=== PATIENT | female | born 1995 | race Caucasian/White ===

== ENCOUNTER 2018-01-31 12:45 | Emergency (ER) | payer BC, SELFPAY ==
--- NOTE | 2018-01-31 13:59 | ER ---
Nurse's Notes [facility] Name: Sherman Hall Age: 22 yrs Sex: Female : 1995 Arrival Date: 01/31/2018 Time: 12:46 Bed 12 Private MD: Diagnosis: Acute upper respiratory infection, unspecified Presentation: 01/31 12:56 Presenting complaint: Patient states: Flu like symptoms for 2 days. Transition of care: aj patient was not received from another setting of care. Onset of symptoms was January 29, 2018. Care prior to arrival: None. 12:56 Method Of Arrival: Ambulatory 12:56 Acuity: LINNEA 4 Triage Assessment: 12:57 General: Appears in no apparent distress. comfortable, Behavior is calm, cooperative, aj appropriate for age. Pain: Denies pain. EENT: Reports nasal congestion nasal discharge. Neuro: Level of Consciousness is awake, alert, obeys commands, Oriented to person, place, time, situation. Respiratory: Reports cough that is Airway is patent Respiratory effort is even, unlabored, Respiratory pattern is regular, symmetrical. Derm: Skin is intact, is healthy with good turgor, Skin is pink, warm \T\ dry. normal. 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 - Social history:: Smoking status: Patient/guardian denies using tobacco. Screenin:52 Abuse screen: Denies threats or abuse. Denies injuries from another. Nutritional ss screening: No deficits noted. Tuberculosis screening: Never had TB. Fall Risk None identified. Assessment: 13:52 General: Appears uncomfortable, ill, Behavior is calm, cooperative, Reports chills for ss 1-2 days, fever for 1-2 days, feeling ill for 1-2 days, fatigue for 1-2 days. Pain: Denies pain. Neuro: Level of Consciousness is awake, alert, obeys commands, Oriented to person, place, time, situation. Cardiovascular: Capillary refill < 3 seconds is brisk in bilateral fingers. Respiratory: Airway is patent Respiratory effort is even, unlabored, Respiratory pattern is regular, symmetrical. GI: Patient currently denies abdominal pain, diarrhea, nausea, vomiting. : Denies burning with urination, urinary frequency. EENT: Nares are clear Oral mucosa is moist. Derm: Skin is intact, is healthy with good turgor, Skin is dry, Skin is pink, warm \T\ dry. normal. Musculoskeletal: Circulation, motion, and sensation intact. Capillary refill < 3 seconds, is brisk, in bilateral fingers. Range of motion: intact in all extremities, Swelling absent. Vital Signs: 12:57 BP 116 / 76; Pulse 91; Resp 17; Temp 99.3; Pulse Ox 99% on R/A; Weight 88 kg; Height 5 aj ft. 6 in. (167.64 cm); Pain 0/10; 12:57 Body Mass Index 31.31 (88.00 kg, 167.64 cm) aj ED Course: 12:46 Patient arrived in ED. as 12:57 Triage completed. aj 12:57 Arm band placed on left wrist. Patient placed in waiting room, Patient notified of wait aj time. Labs ordered per protocol. 13:49 Elicia Traore FNP-C is PHCP. kb 13:49 Poncho Lee MD is Attending Physician. kb 13:52 Patient has correct armband on for positive identification. Bed in low position. Call ss light in reach. 14:10 No provider procedures requiring assistance completed. Patient did not have IV access ss during this emergency room visit. Administered Medications: No medications were administered Outcome: 13:59 Discharge ordered by MD. kb 14:10 Discharged to home ambulatory. ss 14:10 Condition: good 14:10 Discharge instructions given to patient, Instructed on discharge instructions, follow up and referral plans. medication usage, Demonstrated understanding of instructions, follow-up care. 14:11 Patient left the ED. ss Signatures: Elicia Traore FNP-C FNP-Yasmeen Piedra RN RN aj Martinez, Amelia as Smirch, Shelby, RN RN
--- NOTE | 2018-01-31 13:59 | EDPHYS ---
Physician Documentation [facility] Name: Sherman Hall Age: 22 yrs Sex: Female : 1995 Arrival Date: 01/31/2018 Time: 12:46 Bed 12 Private MD: ED Physician Poncho Lee HPI: 01/31 13:58 This 22 yrs old Female presents to ER via Ambulatory with complaints of kb Fever, Cough. 13:58 The patient or guardian reports cough, that is intermittent, described as mild, with no kb sputum, flu symptoms, low-grade fever, myalgias. Onset: The symptoms/episode began/occurred 3 day(s) ago. Severity of symptoms: At their worst the symptoms were mild, moderate, in the emergency department the symptoms are unchanged. Modifying factors: The symptoms are alleviated by nothing, the symptoms are aggravated by nothing. Associated signs and symptoms: Pertinent positives: fever, rhinorrhea, Pertinent negatives: chest pain, diarrhea, ear ache, nausea, sore throat, vomiting. The patient has not experienced similar symptoms in the past. The patient has not recently seen a physician. 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 - Social history:: Smoking status: Patient/guardian denies using tobacco. ROS: 13:57 Cardiovascular: Negative for chest pain, palpitations, and edema, Abdomen/GI: Negative kb for abdominal pain, nausea, vomiting, diarrhea, and constipation, Back: Negative for injury and pain, MS/Extremity: Negative for injury and deformity, Skin: Negative for injury, rash, and discoloration, Neuro: Negative for headache, weakness, numbness, tingling, and seizure. 13:57 Constitutional: Positive for body aches, fever, Negative for chills, fatigue, malaise, poor PO intake, weight loss. 13:57 ENT: Positive for rhinorrhea, sinus congestion. 13:57 Respiratory: Positive for cough, Negative for dyspnea on exertion, hemoptysis, orthopnea, pleurisy, shortness of breath, sputum production, wheezing. Exam: 13:57 Constitutional: This is a well developed, well nourished patient who is awake, alert, kb and in no acute distress. Head/Face: Normocephalic, atraumatic. ENT: Nares patent. No nasal discharge, no septal abnormalities noted. Tympanic membranes are normal and external auditory canals are clear. Oropharynx with no redness, swelling, or masses, exudates, or evidence of obstruction, uvula midline. Mucous membranes moist. Neck: Trachea midline, no thyromegaly or masses palpated, and no cervical lymphadenopathy. Supple, full range of motion without nuchal rigidity, or vertebral point tenderness. No Meningismus. Chest/axilla: Normal chest wall appearance and motion. Nontender with no deformity. No lesions are appreciated. Cardiovascular: Regular rate and rhythm with a normal S1 and S2. No gallops, murmurs, or rubs. Normal PMI, no JVD. No pulse deficits. Respiratory: Lungs have equal breath sounds bilaterally, clear to auscultation and percussion. No rales, rhonchi or wheezes noted. No increased work of breathing, no retractions or nasal flaring. Abdomen/GI: Soft, non-tender, with normal bowel sounds. No distension or tympany. No guarding or rebound. No evidence of tenderness throughout. Back: No spinal tenderness. No costovertebral tenderness. Full range of motion. Skin: Warm, dry with normal turgor. Normal color with no rashes, no lesions, and no evidence of cellulitis. MS/ Extremity: Pulses equal, no cyanosis. Neurovascular intact. Full, normal range of motion. Neuro: Awake and alert, GCS 15, oriented to person, place, time, and situation. Cranial nerves II-XII grossly intact. Motor strength 5/5 in all extremities. Sensory grossly intact. Cerebellar exam normal. Normal gait. Vital Signs: 12:57 BP 116 / 76; Pulse 91; Resp 17; Temp 99.3; Pulse Ox 99% on R/A; Weight 88 kg; Height 5 aj ft. 6 in. (167.64 cm); Pain 0/10; 12:57 Body Mass Index 31.31 (88.00 kg, 167.64 cm) aj MDM: 13:49 Patient medically screened. kb 13:56 Data reviewed: vital signs, nurses notes. Data interpreted: Pulse oximetry: on room air kb is 99 %. Interpretation: normal. 13:58 Counseling: I had a detailed discussion with the patient and/or guardian regarding: the kb historical points, exam findings, and any diagnostic results supporting the discharge/admit diagnosis, lab results, the need for outpatient follow up, a family practitioner, to return to the emergency department if symptoms worsen or persist or if there are any questions or concerns that arise at home. 01/31 12:56 Order name: Flu; Complete Time: 13:48 01/31 12:56 Order name: Strep; Complete Time: 13:48 01/31 13:32 Order name: Throat Culture EDMS Administered Medications: No medications were administered Disposition: 14:46 Co-signature as Attending Physician, Poncho Lee MD. Disposition: 01/31/18 13:59 Discharged to Home. Impression: Acute upper respiratory infection, unspecified. - Condition is Stable. - Discharge Instructions: Upper Respiratory Infection, Adult, [id number]. - Medication Reconciliation Form, Thank You Letter, Antibiotic Education, Prescription Opioid Use form. - Follow up: Private Physician; When: 2 - 3 days; Reason: Recheck today's complaints, Continuance of care, Re-evaluation by your physician. Follow up: Emergency Department; When: As needed; Reason: Worsening of condition. Signatures: Dispatcher [employer] EDMS Elicia Traore, CASPER CAICEDO-Yasmeen Piedra, RN Jina Joyce RN RN ss Starr, Gregory, MD MD
[2018-01-31 14:20] VITALS: BP 116/76; TEMP 99.3; O2SAT 99
== END 2018-01-31 14:11 | disposition home or self-care (01) ==
LOC: ER 12:45
DX: J06.9 Acute upper respiratory infection, unspecified (principal)
CPT/HCPCS: 87070; 87081; 87804; 99283

== ENCOUNTER 2019-10-13 17:28 | Emergency (ER) | payer SELFPAY ==
--- OUTSIDE RECORDS SUMMARY | 2019-10-13 17:31 | XMS REPORT | Summary of Care ---
:1995 Author Organization [facility] - Health Address [address] [place] [address] Care Team Providers Name Role Phone Clark Mclain Malgorzata CAICEDO Primary Care Provider Encounter Details Date Type Department Care Team Description 06/18/2019 Orders Only [facility] Doctor Unassigned, No 301 [facility] [place] [address] [address] [id number] Allergies No Known Allergiesdocumented as of this encounter (statuses as of 06/26/2019) Medications Medication Sig Dispensed Refills Start Date End Date Status PROAIR HFA 90 0 03/31/2016 Active mcg/actuation inhaler ibuprofen (MOTRIN) 800 Take 1 tablet by 60 tablet 0 07/22/2016 Active mg tablet mouth every 8 (eight) hours as needed for Pain (scale 1-3). HYDROcodone-acetaminoph Take 1 tablet by 40 tablet 0 07/22/2016 Active en (NORCO) 10-325 mg mouth every 6 tablet (six) hours as needed for Pain (scale 1-3), Pain (scale 4-6) or Pain (scale 7-10). phentermine HCl Take by mouth. 0 Active (ADIPEX-P ORAL) documented as of this encounter (statuses as of 06/26/2019) Active Problems Problem Noted Date Well woman exam 12/31/2018 Encounter for contraceptive management, unspecified type 12/31/2018 Family planning, IUD (intrauterine device) check/reinsertion/removal 2018 Pre-conception counseling 12/31/2018 Screen for STD (sexually transmitted disease) 12/31/2018 Overweight 12/31/2018 BMI 28.0-28.9,adult 12/31/2018 History of herpes genitalis 06/08/2016 documented as of this encounter (statuses as of 06/26/2019) Resolved Problems Problem Noted Date Resolved Date Liveborn , of roberts , born in hospital by 07/21/201608/22 delivery Induction of Labor Requiring Cervical Ripening 07/20/2016 12/31/2018 Normal labor and delivery 07/20/2016 12/31/2018 URI (upper respiratory infection) 07/12/2016 12/31/2018 PUPPP (pruritic urticarial papules and plaques of ) 07/05/201612/31 Excessive weight gain during in third trimester 07/05/20162018 High risk due to smoking in third trimester 06/08/2016 12/31/2018 Uterine size-date discrepancy, antepartum, third trimester 06/08/20162018 documented as of this encounter (statuses as of 06/26/2019) Immunizations Name Administration Dates Next Due Tdap 05/23/2016 documented as of this encounter Social History Tobacco Use Types Packs/Day Years Used Date Former Smoker Quit: 10/19/2015 Smokeless Tobacco: Never Used Comments: Quit early in Alcohol Use Drinks/Week oz/Week Comments Yes 0 Standard drinks or equivalent 0.0 socially Sex Assigned at Date Recorded Not on file Job Start Date Occupation Industry Not on file Not on file Not on file Travel History Travel Start Travel End No recent travel history available. documented as of this encounter Last Filed Vital Signs Not on filedocumented in this encounter Plan of Treatment Health Maintenance Due Date Last Done Comments HPV VACCINES (1 - Female 3-dose 2008 series) INFLUENZA VACCINE (Retired 07/06/2019 version) PAP SMEAR 12/31/2021 12/31/2018 DTaP,Tdap,and Td Vaccines (2 - Td) 05/23/2026 05/23/2016 PNEUMOCOCCAL 0-64 YEARS COMBINED Aged Out No longer eligible based on SERIES patient's age to complete this topic documented as of this encounter Procedures Procedure Name Priority Date/Time Associated Diagnosis Comments AUTHORIZATION FOR RELEASE Routine 06/18/2019 12:01 AM OF PHI CDT documented in this encounter Results Not on filedocumented in this encounter Insurance Payer Benefit Plan Subscriber ID Effective Phone Address Type / Group Dates [employer] [place] [id number] xxxxxxxxx 2018-Prese [phone] Medicaid WOMEN nt [address] [place] [address] documented as of this encounter
--- OUTSIDE RECORDS SUMMARY | 2019-10-13 17:31 | XMS REPORT ---
:1995 Author Organization [facility] Address [address] [place] [address] [address] [place] [address] Care Team Providers Name Role Phone Unavailable Unavailable Unavailable Payers Payer Name Policy Type Policy Number Effective Date Expiration Date Problems This patient has no known problems. Allergies, Adverse Reactions, Alerts Allergy Allergy Status Severity Reaction(s) Onset Inactive Treating Comments Name Type Date Date Clinician No Known DA Active U 2019-09 Allergies -16 00:00:0 0 Medications This patient has no known medications. Results Test Description Test Time Test Comments Text Results Atomic Results Result Comments PLACENTA 2019-09-25 RUN DATE: THIRD 18:45:00 09/26/19 [facility] PAGE 1 RUN TIME: 1248 TRIMESTER Specimen Inquiry RUN USER: INTERFACE PATIENT: ASHISH PULLIAM LOC: IAN U #: [id number] AGE/SX: ROOM: [facility] REREG DR: Justa Garcia MD : [birth year] BED: A DIS: 09/24/19 STATUS: DIS IN TLOC: SPEC #: [id number] RECD: 09/21/19 STATUS: SUSANA REQ # : [id number] MAGALI: 09/21/19- SUBM DR: Justa Garcia MD ENTERED: 09/23/19 SP TYPE: PLACIII OTHR DR: Crystal Crocker MD ORDERED: LEVEL V SURGICA CODES: [id number] - PLACENTA, NOS COPIES TO: Justa Garcia MD [address] [place] [address] [phone] Crystal Crocker MD [address] [place] [address] PROCEDURES: LEVEL V SURGICA (Incomplete) TISSUES: PLACENTA, NOS - PLACENTA CLINICAL HISTORY 24 year old, IUP @ 38 weeks, [id number], section, LGA, macrosomia (dominick) FINAL DIAGNOSIS Placenta, 38 weeks gestational age, section: - third trimester placenta, 730 gm (greater than 97th percentile) - meconium macrophages within membranes - small intervillous thrombi - paramarginally inserted trivascular umbilical cord and membranes free of inflammation CPT code(s): 46411 [facility]/dominick dt: 09/25/19 GROSS DESCRIPTION The specimen was received in a container, labeled with the patient's name, unit number and designated "placenta". The following attributes are observed: Cord insertion : 2 cm from margin Cord length: 42 cm Number of vessels: 3 CONTINUED ON NEXT PAGE RUN DATE: 09/26/19 [facility] PAGE 2 RUN TIME: 1248 Specimen Inquiry RUN USER: INTERFACE SPEC #: [id number] PATIENT: ASHISH PULLIAM #[id number] (Continued) -- GROSS DESCRIPTION (Continued) Cord color: Li Other cord findings: Slightly edematous; less than 12 twists per 10 cm surface findings: Steel blue, wrinkled, glistening with focal subchorionic fibrin deposition Vasculature: Displays unremarkable blood vasculature Membranes rupture site: Marginal Membrane color: Li Other membrane findings: Thickened The trimmed placental weight: 730 gm Disk measurement: 22 x 17 x 4.5 cm in greatest dimension Accessory lobes: None Maternal surface: Slightly fragmented with well-formed cotyledons Parenchyma: Red, beefy, and spongy with peripheral fibrosis and calcifications Parenchyma lesions: There is a 0.8 cm li-yellow to dark red, peripheral focus which grossly involves less than 5% of the placental parenchyma Cassettes: A1 through A4 jm/wpd 09/23/19 @ 1337 Signed Samira Lugo MD [id number] END OF REPORT CBC W/AUTO DIFF 2019-09-22 07:54:00 Test Item Value Reference Range Comments WHITE BLOOD CELL (test code=WBC) 12.4 K/mm3 6.6-12.1 RED BLOOD CELL (test code=RBC) 3.36 M/mm3 3.45-5.01 HEMOGLOBIN (test code=HGB) 7.7 g/dL 10.7-13.9 HEMATOCRIT (test code=HCT) 26.4 % 32.1-42.1 MEAN CELL VOLUME (test code=MCV) 79 fL 84.1-94.8 MEAN CELL HGB (test code=MCH) 22.9 pg 27-35 MEAN CELL HGB CONCETRATION (test code=MCHC) 29.2 gm/dL 32.2-34.1 RED CELL DISTRIBUTION WIDTH (test code=RDW) 14.9 % 12.4-16.5 PLATELET COUNT (test code=PLT) 192 K/mm3 133-385 IMMATURE PLATELET FRACTION (test code=IPF) 0.0 % 0.0-10.8 MEAN PLATELET VOLUME (test code=MPV) 12.4 fl 9.1-12.7 NEUTROPHIL % (test code=NT%) 73.3 % 56.5-79.4 LYMPHOCYTE % (test code=LY%) 15.6 % 14.3-34.3 MONOCYTE % (test code=MO%) 8.4 % 5.1-10.4 EOSINOPHIL % (test code=EO%) 0.8 % 0.1-3.0 BASOPHIL % (test code=BA%) 0.2 % 0.1-1.0 NEUTROPHIL # (test code=NT#) 9.1 K/mm3 LYMPHOCYTE # (test code=LY#) 1.9 K/mm3 MONOCYTE # (test code=MO#) 1.0 K/mm3 EOSINOPHIL # (test code=EO#) 0.10 K/mm3 BASOPHIL # (test code=BA#) 0.0 K/mm3 RBC MORPHOLOGY REQUIRED (test code=RBCM) NORMAL NORMAL PLATELET MORPHOLOGY REQUIRED (test code=PLTMR) NORMAL NORMAL AG HEPATITIS B [id number] 03:30:00 Test Item Value Reference Range Comments AG HEPATITIS B SURFACE (test code=HBSAG) NONREACTIVE NONREACTIVE IS CONSENT FORM SIGNED FOR HIV TESTING? YAB HEPATITIS C [id number] 03:30: 00 Test Item Value Reference Range Comments AB HEPATITIS C (test code=HCVAB) NONREACTIVE NONREACTIVE SIGNAL TO CUTOFF (test code=CUTOFF) <0.02 <0.80 IS CONSENT FORM SIGNED FOR HIV TESTING? YAB [id number] 03:30:00 Test Item Value Reference Range Comments AB TREPONEMA (test code=TREPAB) NONREACTIVE NONREACTIVE IS CONSENT FORM SIGNED FOR HIV TESTING? YAB HIV 1 03:30:00 Test Item Value Reference Range Comments AB HIV 1 2 (test NONREACTIVE NONREACTIVE Done by [facility] 4th code=VMH68YL) Gen HIV Ag/Ab Combo Screen IS CONSENT FORM SIGNED FOR HIV TESTING? YAG HEPATITIS B [id number] 02:59: 00 Test Item Value Reference Range Comments AG HEPATITIS B SURFACE (test code=HBSAG) NONREACTIVE NONREACTIVE IS CONSENT FORM SIGNED FOR HIV TESTING? YAB HEPATITIS C [id number] 02:59: 00 Test Item Value Reference Range Comments AB HEPATITIS C (test code=HCVAB) NONREACTIVE SIGNAL TO CUTOFF (test code=CUTOFF) <0.80 IS CONSENT FORM SIGNED FOR HIV TESTING? YAB [id number] 02:59:00 Test Item Value Reference Range Comments AB TREPONEMA (test code=TREPAB) NONREACTIVE NONREACTIVE IS CONSENT FORM SIGNED FOR HIV TESTING? YAB HIV 1 02:59:00 Test Item Value Reference Range Comments AB HIV 1 2 (test code=QSQ97BB) NONREACTIVE IS CONSENT FORM SIGNED FOR HIV TESTING? YCOMPREHENSIVE METABOLIC [id number] 01:01:00 Test Item Value Reference Range Comments SODIUM (test code=NA) 135 mEq/L 135-145 POTASSIUM (test code=K) 3.8 mEq/L 3.5-5.0 CHLORIDE (test code=CL) 101 mEq/L 100-115 CARBON DIOXIDE (test code=CO2) 22 mEq/L 22-31 ANION GAP (test code=GAP) 16.20 10-20 GLUCOSE (test code=GLU) 83 mg/dL 65-110 BLOOD UREA NITROGEN (test code=BUN) 4 mg/dL 7-18 GLOMERULAR FILTRATION RATE (test code=GFR) 149 ml/min >60 CREATININE (test code=CREAT) 0.5 mg/dL 0.5-1.0 TOTAL PROTEIN (test code=PROT) 6.4 gm/dL 6.3-8.2 ALBUMIN (test code=ALB) 2.8 gm/dL 3.4-4.8 CALCIUM (test code=CA) 8.8 mg/dL 8.4-10.2 BILIRUBIN TOTAL (test code=BILT) 0.4 mg/dL 0.2-1.0 SGOT/AST (test code=AST) 26 units/L 15-37 SGPT/ALT (test code=ALT) 22 units/L 12-78 ALKALINE PHOSPHATASE TOTAL (test code=ALKP) 128 units/L 46-116 CBC W/AUTO [id number] 00:53:00 Test Item Value Reference Range Comments WHITE BLOOD CELL (test code=WBC) 12.3 K/mm3 6.6-12.1 RED BLOOD CELL (test code=RBC) 3.83 M/mm3 3.45-5.01 HEMOGLOBIN (test code=HGB) 8.9 g/dL 10.7-13.9 HEMATOCRIT (test code=HCT) 29.8 % 32.1-42.1 MEAN CELL VOLUME (test code=MCV) 78 fL 84.1-94.8 MEAN CELL HGB (test code=MCH) 23.2 pg 27-35 MEAN CELL HGB CONCETRATION (test code=MCHC) 29.9 gm/dL 32.2-34.1 RED CELL DISTRIBUTION WIDTH (test code=RDW) 14.8 % 12.4-16.5 PLATELET COUNT (test code=PLT) 230 K/mm3 133-385 IMMATURE PLATELET FRACTION (test code=IPF) 0.0 % 0.0-10.8 MEAN PLATELET VOLUME (test code=MPV) 12.4 fl 9.1-12.7 NEUTROPHIL % (test code=NT%) 73.8 % 56.5-79.4 LYMPHOCYTE % (test code=LY%) 14.5 % 14.3-34.3 MONOCYTE % (test code=MO%) 7.5 % 5.1-10.4 EOSINOPHIL % (test code=EO%) 1.0 % 0.1-3.0 BASOPHIL % (test code=BA%) 0.4 % 0.1-1.0 NEUTROPHIL # (test code=NT#) 9.1 K/mm3 LYMPHOCYTE # (test code=LY#) 1.8 K/mm3 MONOCYTE # (test code=MO#) 0.9 K/mm3 EOSINOPHIL # (test code=EO#) 0.12 K/mm3 BASOPHIL # (test code=BA#) 0.1 K/mm3 RBC MORPHOLOGY REQUIRED (test code=RBCM) NORMAL NORMAL PLATELET MORPHOLOGY REQUIRED (test code=PLTMR) NORMAL NORMAL
--- OUTSIDE RECORDS SUMMARY | 2019-10-13 17:31 | XMS REPORT | Summary of Care ---
:1995 Author Organization [facility] - Health Address [address] [place] [address] Care Team Providers Name Role Phone Clark Mclain Malgorzata CAICEDO Primary Care Provider Encounter Details Date Type Department Care Team Description 05/27/2019 Orders Only [facility] Doctor Unassigned, No [address] [facility] [place] [address] [address] [id number] Allergies No Known Allergiesdocumented as of this encounter (statuses as of 06/05/2019) Medications Medication Sig Dispensed Refills Start Date [...] as of this encounter (statuses as of 06/05/2019) Active Problems Problem Noted Date Well woman exam 12/31/2018 Encounter for contraceptive management, unspecified type 12/31/2018 Family planning, IUD (intrauterine device) check/reinsertion/removal 2018 Pre-conception counseling 12/31/2018 Screen for STD (sexually transmitted disease) 12/31/2018 Overweight 12/31/2018 BMI 28.0-28.9,adult 12/31/2018 History of herpes genitalis 06/08/2016 documented as of this encounter (statuses as of 06/05/2019) Resolved Problems Problem Noted Date Resolved Date [...] as of this encounter (statuses as of 06/05/2019) Immunizations Name Administration Dates Next Due Tdap [...] - Female 3-dose 2008 series) INFLUENZA VACCINE 07/06/2019 PAP SMEAR 12/31/2021 12/31/2018 DTaP,Tdap,and Td Vaccines (2 - Td) 05/23/2026 05/23/2016 PNEUMOCOCCAL 0-64 YEARS COMBINED Aged Out No longer eligible based on SERIES patient's age to complete this topic documented as of this encounter Procedures Procedure Name Priority Date/Time Associated Diagnosis Comments AUTHORIZATION FOR RELEASE Routine 05/27/2019 12:01 AM OF [facility] CDT documented in this encounter Results Not on filedocumented in this encounter Insurance Payer Benefit Plan Subscriber ID Effective Phone Address Type / Group Dates [facility]Pre[facility] [phone] Medicaid WOMEN nt [address] [place] [address] documented as of this encounter
--- NOTE | 2019-10-13 18:07 | ER ---
Nurse's Notes [facility] Name: Sherman Hall Age: 24 yrs Sex: Female : 1995 Arrival Date: 10/13/2019 Time: 17:30 Bed 28 Private MD: Diagnosis: Nonpurulent mastitis associated with Presentation: 10/13 17:46 Presenting complaint: Patient states: "Yesterday my boob started hurting but I figured aj1 it was because I was breast feeding and then today I started getting chills and my whole body started aching, I took my temperature and it was 101, I took some of the Motrin they gave me for my and that what got my fever down, but my boob is really sore" Patient reports pain to left breast. Transition of care: patient was not received from another setting of care. Onset of symptoms was October 13, 2019. Risk Assessment: Do you want to hurt yourself or someone else? Patient reports no desire to harm self or others. Initial Sepsis Screen: Does the patient meet any 2 criteria? HR > 90 bpm. No. Patient's initial sepsis screen is negative. Does the patient have a suspected source of infection? Yes: Other: possible mastitis. Care prior to arrival: None. 17:46 Method Of Arrival: Ambulatory aj1 17:46 Acuity: LINNEA 4 aj1 Triage Assessment: 17:48 General: Appears in no apparent distress. comfortable, Behavior is calm, cooperative, aj1 appropriate for age. Pain: Complains of pain in left breast Pain currently is 5 out of 10 on a pain scale. Neuro: Level of Consciousness is awake, alert, obeys commands. Cardiovascular: Patient's skin is warm and dry. Respiratory: Airway is patent Respiratory effort is even, unlabored, Respiratory pattern is regular, symmetrical. 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 - Social history:: Smoking status: Patient/guardian denies using tobacco. - Ebola Screening: : Patient denies travel to an Ebola-affected area in the 21 days before illness onset. Screenin:00 Abuse screen: Denies threats or abuse. Denies injuries from another. Nutritional ca1 screening: No deficits noted. Tuberculosis screening: No symptoms or risk factors identified. Fall Risk None identified. Assessment: 18:00 General: Appears in no apparent distress. comfortable, Behavior is calm, cooperative, ca1 appropriate for age. Pain: Complains of pain in left breast Pain currently is 7 out of 10 on a pain scale. Pain began 1 day ago. Neuro: Level of Consciousness is awake, alert, obeys commands, Oriented to person, place, time, situation, Appropriate for age. Derm: Skin is intact, is healthy with good turgor, Skin is pink, warm \\T\\ dry. Musculoskeletal: Circulation, motion, and sensation intact. Capillary refill < 3 seconds. 18:15 Reassessment: IM antibiotics given. Kept a few minutes for observation. ca1 Vital Signs: 17:48 BP 105 / 72; Pulse 91; Resp 18; Temp 98.9; Pulse Ox 99% on R/A; Height 5 ft. 7 in. aj1 (170.18 cm) (R); Pain 5/10; ED Course: 17:30 Patient arrived in ED. as 17:34 Nelda Freitas FNP-C [facility]. snw 17:35 Roberto Larson MD is Attending Physician. snw 17:35 Triage completed. aj1 17:48 Arm band placed on Patient placed in an exam room. aj1 17:58 Adenike Tellez, CODEY is Primary Nurse. ca1 18:00 Patient has correct armband on for positive identification. Bed in low position. Call ca1 light in reach. Side rails up X 1. 18:00 No provider procedures requiring assistance completed. Patient did not have IV access ca1 during this emergency room visit. Administered Medications: 18:13 Drug: Rocephin (cefTRIAXone) 1 grams Route: IM; Site: left gluteus; ca1 18:27 Follow up: Response: No adverse reaction ca1 Outcome: 18:06 Discharge ordered by . snw 18:27 Discharged to home ambulatory. ca1 18:27 Condition: stable 18:27 Discharge instructions given to patient, Instructed on discharge instructions, follow up and referral plans. medication usage, Demonstrated understanding of instructions, follow-up care, medications, Prescriptions given X 1. 18:32 Patient left the ED. ca1 Signatures: Corinna Barron RN RN aj1 Nelda Freitas, MARIFER-C PULLEY MORTISER OPERATOR-Carito Mendosa Cheryl RN RN ca1 Corrections: (The following items were deleted from the chart) 17:33 Presenting complaint: Patient states: "It started Sunday night, I have been aj1 having really bad chest pains, like a constant dull pain but then it will spike and I'll get stabbing pain all the way through to my back and it goes down my arm and my arm gets hot and cold and everytime I get the sharp stabbing pain I feel like I'm going to pass out and I can't breathe" [facility] 38 17:33 Transition of care: patient was not received from another setting of care. [place] [id number] 17:33 Onset of symptoms was 2019 [place] [id number] 17:33 Risk Assessment: Do you want to hurt yourself or someone else? Patient reports no [facility] desire to harm self or others. [facility] 17:33 Initial Sepsis Screen: Does the patient meet any 2 criteria? HR > 90 bpm. No. aj1 Patient's initial sepsis screen is negative. Does the patient have a suspected source of infection? No. Patient's initial sepsis screen is negative. [facility] 38 17:33 Care prior to arrival: None. [place] [id number] 17:33 Method Of Arrival: Ambulatory [place] [address] 17:33 Acuity: LINNEA 3 [facility] 17:36 Allergies: PENICILLINS; aj1 [facility] :39 17:36 Allergies: Nuts; aj1 [facility] :39 17:36 Allergies: Wasps; aj aj 17:39 17:36 Home Meds: Humulin 70/30 100 unit/mL (70-30) Sub-Q susp; [facility] :39 17:36 PMHx: Diabetes - IDDM; [facility] :39 17:36 Immunization history: Flu vaccine is not up to date. [place] [id number] 39 17:36 Social history: Smoking status: Patient uses tobacco products, smokes one-half aj1 pack cigarettes per day, [facility] 17:39 17:36 Ebola Screening: Patient denies travel to an Ebola-affected area in the 21 days aj1 before illness onset [facility] :39 17:36 General: Appears uncomfortable, Behavior is cooperative, anxious, [place] [address] :39 17:36 Pain: Complains of pain in chest Pain currently is 9 out of 10 on a pain scale. [place] [address] :39 17:36 Neuro: Level of Consciousness is awake, alert, obeys commands, [place] [address] 39 17:36 Cardiovascular: Patient's skin is warm and dry. [place] [address] 39 17:36 Respiratory: Airway is patent Respiratory effort is even, unlabored, Respiratory aj pattern is regular, symmetrical, [facility] :39 17:36 BP 151 / 108; Pulse 102bpm; Resp 20bpm; Pulse Ox 100% RA; Temp 98.6F; 58.97 kg aj1 Reported; Height 5 ft. 3 in. Reported; BMI: 23.0; Pain 9/10; [facility] 39 17:36 LMP 09/29/2019 [place] [address] 17:40 17:36 Arm band placed on Patient placed in an exam room, [place] [id number]
--- NOTE | 2019-10-13 18:07 | EDPHYS ---
Physician Documentation [facility] Name: Sherman Hall Age: 24 yrs Sex: Female : 1995 Arrival Date: 10/13/2019 Time: 17:30 Bed 28 Private MD: ED Physician Roberto Larson HPI: 10/13 18:11 This 24 yrs old Female presents to ER via Ambulatory with complaints of snw Breast Problem, Fever. 18:11 Onset: The symptoms/episode began/occurred acutely, 2 day(s) ago. Associated signs and snw symptoms: Pertinent positives: fever, malaise, bodyaches. The patient has not experienced similar symptoms in the past. It is unknown whether or not the patient has recently seen a physician. well x 3 months. 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 - Social history:: Smoking status: Patient/guardian denies using tobacco. - Ebola Screening: : Patient denies travel to an Ebola-affected area in the 21 days before illness onset. ROS: 18:07 Eyes: Negative for injury, pain, redness, and discharge, ENT: Negative for injury, snw pain, and discharge, Neck: Negative for injury, pain, and swelling, Cardiovascular: Negative for chest pain, palpitations, and edema, Left breast tender, no noted erythema Respiratory: Negative for shortness of breath, cough, wheezing, and pleuritic chest pain, Abdomen/GI: Negative for abdominal pain, nausea, vomiting, diarrhea, and constipation, Back: Negative for injury and pain, : Negative for injury, bleeding, discharge, and swelling, MS/Extremity: Negative for injury and deformity, Skin: Negative for injury, rash, and discoloration, Neuro: Negative for headache, weakness, numbness, tingling, and seizure, Psych: Negative for depression, anxiety, suicide ideation, homicidal ideation, and hallucinations. 18:07 Constitutional: Positive for body aches, chills, fever. Exam: 18:07 Constitutional: This is a well developed, well nourished patient who is awake, alert, snw and in no acute distress. Head/Face: Normocephalic, atraumatic. Eyes: Pupils equal round and reactive to light, extra-ocular motions intact. Lids and lashes normal. Conjunctiva and sclera are non-icteric and not injected. Cornea within normal limits. Periorbital areas with no swelling, redness, or edema. ENT: Nares patent. No nasal discharge, no septal abnormalities noted. Tympanic membranes are normal and external auditory canals are clear. Oropharynx with no redness, swelling, or masses, exudates, or evidence of obstruction, uvula midline. Mucous membranes moist. Neck: Trachea midline, no thyromegaly or masses palpated, and no cervical lymphadenopathy. Supple, full range of motion without nuchal rigidity, or vertebral point tenderness. No Meningismus. Cardiovascular: Regular rate and rhythm with a normal S1 and S2. No gallops, murmurs, or rubs. Normal PMI, no JVD. No pulse deficits. Respiratory: Lungs have equal breath sounds bilaterally, clear to auscultation and percussion. No rales, rhonchi or wheezes noted. No increased work of breathing, no retractions or nasal flaring. Abdomen/GI: Soft, non-tender, with normal bowel sounds. No distension or tympany. No guarding or rebound. No evidence of tenderness throughout. Back: No spinal tenderness. No costovertebral tenderness. Full range of motion. Skin: Warm, dry with normal turgor. Normal color with no rashes, no lesions, and no evidence of cellulitis. MS/ Extremity: Pulses equal, no cyanosis. Neurovascular intact. Full, normal range of motion. Neuro: Awake and alert, GCS 15, oriented to person, place, time, and situation. Cranial nerves II-XII grossly intact. Motor strength 5/5 in all extremities. Sensory grossly intact. Cerebellar exam normal. Normal gait. Psych: Awake, alert, with orientation to person, place and time. Behavior, mood, and affect are within normal limits. 18:07 Chest/axilla: Inspection: normal, Palpation: tenderness, that is moderate, of the left breast - 7 0'clock position. Vital Signs: 17:48 BP 105 / 72; Pulse 91; Resp 18; Temp 98.9; Pulse Ox 99% on R/A; Height 5 ft. 7 in. aj1 (170.18 cm) (R); Pain 5/10; MDM: 18:06 Patient medically screened. snw 18:13 Data reviewed: vital signs, nurses notes. Data interpreted: Pulse oximetry: on room air snw is 99 %. Interpretation: normal. Counseling: I had a detailed discussion with the patient and/or guardian regarding: the historical points, exam findings, and any diagnostic results supporting the discharge/admit diagnosis, the need for outpatient follow up, to return to the emergency department if symptoms worsen or persist or if there are any questions or concerns that arise at home. Special discussion: Based on the history and exam findings, there is no indication for further emergent testing or inpatient evaluation. I discussed with the patient/guardian the need to see the OB Gyne specialist for further evaluation of the symptoms. Administered Medications: 18:13 Drug: Rocephin (cefTRIAXone) 1 grams Route: IM; Site: left gluteus; ca1 18:27 Follow up: Response: No adverse reaction ca1 Disposition: 10/14 07:02 Co-signature as Attending Physician, Roberto Larson MD. rn Disposition: 10/13/19 18:06 Discharged to Home. Impression: Nonpurulent mastitis associated with . - Condition is Stable. - Discharge Instructions: and Mastitis, Heat Therapy. - Prescriptions for Dicloxacillin 500 mg Oral Capsule - take 1 capsule by ORAL route every 6 hours for 10 days; 40 capsule. - Medication Reconciliation Form, Thank You Letter, Antibiotic Education, Prescription Opioid Use form. - Follow up: Private Physician; When: 1 - 2 days; Reason: Recheck today's complaints, Continuance of care, Re-evaluation by your physician. Follow up: Emergency Department; When: As needed; Reason: Worsening of condition. Signatures: Corinna Barron RN RN aj1 Nelda Freitas, SPECIAL FORCES COMMUNICATIONS SERGEANT-C [employer]CES COMMUNICATIONS SERGEANT-Csnw Roberto Larson MD MD rn Acob, Adenike RN RN ca1 Corrections: (The following items were deleted from the chart) 10/13 17:39 17:36 Allergies: PENICILLINS; aj1 aj1 17:39 17:36 Allergies: Nuts; aj1 aj1 17:39 17:36 Allergies: Wasps; aj1 aj1 17:39 17:36 Home Meds: Humulin 70/30 100 unit/mL (70-30) Sub-Q susp; aj1 aj1 :39 17:36 PMHx: Diabetes - IDDM; aj1 aj1 :39 17:36 Immunization history: Flu vaccine is not up to date. aj1 aj1 17:39 17:36 Social history: Smoking status: Patient uses tobacco products, smokes one-half aj1 pack cigarettes per day, aj1 :39 17:36 Ebola Screening: Patient denies travel to an Ebola-affected area in the 21 days aj1 before illness onset aj1 18:32 18:06 10/13/2019 18:06 Discharged to Home. Impression: Nonpurulent mastitis associated ca1 with . Condition is Stable. Forms are Medication Reconciliation Form, Thank You Letter, Antibiotic Education, Prescription Opioid Use. Follow up: Private Physician; When: 1 - 2 days; Reason: Recheck today's complaints, Continuance of care, Re-evaluation by your physician. Follow up: Emergency Department; When: As needed; Reason: Worsening of condition. snw
[2019-10-13] MEDS ORDERED: CEFTRIAXONE 1000 MG/VIAL ONE (18:08)
[2019-10-13] MEDS ORDERED: WATER FOR INJ,STERILE 10 ML ONE (18:08)
[2019-10-13 18:43] VITALS: BP 105/72; TEMP 98.9; O2SAT 99
== END 2019-10-13 18:32 | disposition home or self-care (01) ==
LOC: ER 17:28
DX: O91.23 Nonpurulent mastitis associated with lactation (principal)
CPT/HCPCS: 96372; 99283

== ENCOUNTER 2020-05-31 19:02 | Emergency (ER) | payer SELFPAY ==
--- NOTE | 2020-05-31 21:42 | ER ---
Nurse's Notes [facility] Name: Sherman Hall Age: 24 yrs Sex: Female : 1995 Arrival Date: 05/31/2020 Time: 19:06 Bed 20 Private MD: Diagnosis: Left 4th Metacarpal Fracture (Closed) Presentation: 05/31 19:10 Chief complaint: Patient states: Tripped on stairs Sunday night. Pain and swelling to ll1 left hand. Pain and bruising to right hand also. No LOC. Coronavirus screen: Patient denies a cough. Patient denies shortness of breath or difficulty breathing. Patient denies measured and/or subjective temperature greater than 100.4F prior to today's visit. Patient denies travel on a cruise ship or to a country the [facility] [place] currently [place] as an affected area. Patient denies contact with known and/or suspected case of COVID-19. Proceed with normal triage. Ebola Screen: Patient denies travel to an Ebola-affected area in the 21 days before illness onset. Initial Sepsis Screen: Does the patient meet any 2 criteria? No. Patient's initial sepsis screen is negative. Risk Assessment: Do you want to hurt yourself or someone else? Patient reports no desire to harm self or others. Onset of symptoms was May 29, 2020. 19:10 Method Of Arrival: Ambulatory 1 19:10 Acuity: LINNEA 4 ll1 19:20 Initial Sepsis Screen: Does the patient have a suspected source of infection? No. Patient's initial sepsis screen is negative. Triage Assessment: 19:20 Injury Description: fall. 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 - Social history:: Smoking status: Patient denies any tobacco usage or history of. Patient uses alcohol, only on a social basis. Patient/guardian denies using street drugs. Screenin:20 Abuse screen: Denies threats or abuse. Denies injuries from another. Nutritional screening: No deficits noted. Tuberculosis screening: No symptoms or risk factors identified. Fall Risk Fall in past 12 months (25 points). Assessment: 19:19 General: Appears in no apparent distress. Behavior is calm, cooperative, appropriate wh for age. Pain: Complains of pain in right hand and left hand Pain does not radiate. Pain currently is 8 out of 10 on a pain scale. Quality of pain is described as aching, Pain began 2-3 days ago. Neuro: Level of Consciousness is awake, alert, obeys commands, Oriented to person, place, time, situation, Appropriate for age. Cardiovascular: Capillary refill < 3 seconds. Respiratory: Airway is patent Respiratory effort is even, unlabored, Respiratory pattern is regular, symmetrical. GI: Abdomen is flat, non-distended. : No signs and/or symptoms were reported regarding the genitourinary system. EENT: No signs and/or symptoms were reported regarding the EENT system. Derm: Skin is intact, is healthy with good turgor, Skin is pink, warm \T\ dry. normal. Musculoskeletal: Circulation, motion, and sensation intact. 20:21 Reassessment: Patient appears in no apparent distress at this time. No changes from previously documented assessment. Patient and/or family updated on plan of care and expected duration. Pain level reassessed. Patient is alert, oriented x 3, equal unlabored respirations, skin warm/dry/pink. 21:31 Reassessment: Patient appears in no apparent distress at this time. No changes from previously documented assessment. Patient and/or family updated on plan of care and expected duration. Pain level reassessed. Patient is alert, oriented x 3, equal unlabored respirations, skin warm/dry/pink. Vital Signs: 19:10 BP 144 / 100; Pulse 61; Resp 17; Temp 98.2; Pulse Ox 100% ; Weight 84.82 kg; Height 5 ll1 ft. 7 in. (170.18 cm); Pain 8/10; 20:30 BP 133 / 95; Pulse 55; Resp 18; Pulse Ox 99% on R/A; wh 21:30 BP 141 / 96; Pulse 58; Resp 18; Pulse Ox 99% on R/A; wh 19:10 Body Mass Index 29.29 (84.82 kg, 170.18 cm) 1 ED Course: 19:06 Patient arrived in ED. fj1 19:10 Arm band placed on Patient placed in an exam room, on a stretcher. ll1 19:11 Tony Mercado PA is PHCP. [facility] 19:11 Tc Salgado MD is Attending Physician. [facility] 19:12 Triage completed. ll1 19:13 Codi Barnes is Primary Nurse. 19:20 Patient has correct armband on for positive identification. Bed in low position. Call light in reach. Side rails up X 1. Pulse ox on. NIBP on. 19:34 X-ray(s) taken. jp3 21:09 Enrique Pizarro MD is Referral Physician. [facility] 21:10 Orthoglass splint: Ulnar gutter/Boxer splint applied on left forearm. Done by Obdulio ED TECH Sling applied to left arm. 21:32 No provider procedures requiring assistance completed. Patient did not have IV access during this emergency room visit. 22:21 Hand Left 3 View XRAY In Process Unspecified. EDMS 22:21 Hand Right 3 View XRAY In Process Unspecified. EDMS Administered Medications: No medications were administered Outcome: 21:10 Discharge ordered by MD. [facility] 21:33 Discharged to home ambulatory. 21:33 Condition: stable 21:33 Discharge instructions given to patient, Instructed on discharge instructions, follow up and referral plans. no drinking with medication, no driving heavy equipment, medication usage, POC Demonstrated understanding of instructions, follow-up care, medications, splint care, POC Prescriptions given X 1. 21:33 Patient left the ED. Signatures: Dispatcher [employer] EDMS Tony Mercado PA PA Codi Gil Bg [place] jp3 Moses Beck1 Candi Aguirre, RN RN 1
--- NOTE | 2020-05-31 21:42 | EDPHYS ---
Physician Documentation [facility] Name: Sherman Hall Age: 24 yrs Sex: Female : 1995 Arrival Date: 05/31/2020 Time: 19:06 Bed 20 Private MD: ED Physician Tc Salgado HPI: 05/31 19:10 This 24 yrs old Female presents to ER via Ambulatory with complaints of Hand jmm Injury. 19:10 The patient or guardian reports injury, pain. Onset: The symptoms/episode jmm began/occurred acutely, just prior to arrival. Modifying factors: The symptoms are alleviated by nothing, the symptoms are aggravated by nothing. This is a 24 year old female with no chronic medical conditions that presents to the ED with complaints of right and left hand pain, worse on the left. Patient states she fell while at a alliance party. Denies other known injury. . HAND CULTIVATOR: 19:21 LMP 05/31/2020 wh Historical: - Allergies: 19:10 No Known Drug Allergies; ll1 - PSHx: 19:10 ; ll1 - Immunization history:: Flu vaccine is up to date. - Social history:: Smoking status: Patient denies any tobacco usage or history of. Patient uses alcohol, only on a social basis. Patient/guardian denies using street drugs. ROS: 19:10 Constitutional: Negative for fever, chills, and weight loss, Cardiovascular: Negative jmm for chest pain, palpitations, and edema, Respiratory: Negative for shortness of breath, cough, wheezing, and pleuritic chest pain. 19:10 MS/extremity: Positive for injury or acute deformity. 19:10 All other systems are negative. Exam: 19:10 Constitutional: This is a well developed, well nourished patient who is awake, alert, jmm and in no acute distress. Head/Face: atraumatic. Eyes: EOMI, no conjunctival erythema appreciated ENT: Moist Mucus Membranes Neck: Trachea midline, Supple Chest/axilla: Normal chest wall appearance and motion. Cardiovascular: Regular rate and rhythm. No edema appreciated Respiratory: Normal respirations, no respiratory distress appreciated Abdomen/GI: Non distended, soft Back: Normal ROM Skin: General appearance color normal 19:10 Musculoskeletal/extremity: pain palpation of the dorsum of the left hand diffusely, from appreciated, compartments are soft, NVI. < 2 sec dist cap refill. FROM appreciated to the right hand, no snuff box tenderness appreciated. 19:10 Skin: Appearance: Color: normal in color. 19:10 Neuro: Orientation: is normal, Mentation: is normal, Memory: is normal. 19:10 Psych: Behavior/mood is pleasant, cooperative. Vital Signs: 19:10 BP 144 / 100; Pulse 61; Resp 17; Temp 98.2; Pulse Ox 100% ; Weight 84.82 kg; Height 5 ll1 ft. 7 in. (170.18 cm); Pain 8/10; 20:30 BP 133 / 95; Pulse 55; Resp 18; Pulse Ox 99% on R/A; wh 21:30 BP 141 / 96; Pulse 58; Resp 18; Pulse Ox 99% on R/A; wh 19:10 Body Mass Index 29.29 (84.82 kg, 170.18 cm) ll1 Procedures: 21:08 Splinting: Splint applied to left hand using ulnar gutter. applied by tech. Examined by anmol me, post splint application: neurovascular intact, 2+ distal pulses palpable, brisk capillary refill noted, Patient tolerated well. MDM: 19:18 Patient medically screened. [facility] 21:08 Data reviewed: vital signs, nurses notes. Counseling: I had a detailed discussion with anmol the patient and/or guardian regarding: the historical points, exam findings, and any diagnostic results supporting the discharge/admit diagnosis, the need for outpatient follow up, to return to the emergency department if symptoms worsen or persist or if there are any questions or concerns that arise at home. ED course: Patient advised to follow up with hand surgery for reevaluation. Patient is otherwise given strict return precautions. Patient understood and agrees with the plan of care. . 05/31 19:18 Order name: Hand Left 3 View XRAY [facility] 05/31 19:18 Order name: Hand Right 3 View XRAY [facility] 05/31 20:44 Order name: Ulnar Gutter splint; Complete Time: 21:04 [facility] 05/31 20:44 Order name: Sling; Complete Time: 21:04 anmol Administered Medications: No medications were administered Disposition: 21:08 Chart complete. Chart complete. andres 23:10 Co-signature as Attending Physician, Tc Salgado MD. ma2 Disposition: 07/27/20 21:10 Discharged to Home. Impression: Left 4th Metacarpal Fracture (Closed). - Condition is Stable. - Discharge Instructions: Metacarpal Fracture. - Prescriptions for Ultracet 37.5- 325 mg Oral Tablet - take 1 tablet by ORAL route every 6 hours - for up to 5 days; do not exceed 8 tablets per day.; 12 tablet. - Medication Reconciliation Form, Thank You Letter, Antibiotic Education, Prescription Opioid Use form. - Follow up: Enrique Pizarro MD; When: 2 - 3 days; Reason: Recheck today's complaints, Continuance of care, Re-evaluation by your physician. Signatures: Dispatcher [employer] EDMS Tony Mercado PA PA jmm Habalo, Winsy wh Alzahri, Mohammad, MD MD ma2 Candi Aguirre RN RN ll1 Corrections: (The following items were deleted from the chart) 21:33 21:10 05/31/2020 21:10 Discharged to Home. Impression: Left 4th Metacarpal Fracture wh (Closed). Condition is Stable. Forms are Medication Reconciliation Form, Thank You Letter, Antibiotic Education, Prescription Opioid Use. Follow up: Enrique Pizarro; When: 2 - 3 days; Reason: Recheck today's complaints, Continuance of care, Re-evaluation by your physician. anmol
[2020-05-31 21:45] VITALS: TEMP 98.2
[2020-05-31 21:52] VITALS: O2SAT 99
[2020-05-31 21:54] VITALS: BP 141/96
--- OUTSIDE RECORDS SUMMARY | 2020-05-31 22:47 | XMS REPORT | Continuity of Care Document ---
:1995 Author Organization [facility] t Address [address] [place] [address] Care Team Providers Name Role Phone Doctor Unassigned, Name Attending Clinician Unavailable Payers Payer Name Policy Type Policy Number Effective Date Expiration Date S ource Problems This patient has no known problems. Allergies, Adverse Reactions, Alerts Allergy Allergy Status Severity Reaction(s) Onset Inactive Treating Comm ents Source Name Type Date Date Clinician No Known DA Active U 2018-11 [facility] [place] Medications This patient has no known medications. Procedures This patient has no known procedures. Encounters Start End Encounter Admission Attending Care Care Encounter Source Date/Time Date/Time Type Type Clinicians Facility Department ID 2019-06-18 2019-06-18 Orders Doctor ALEKSANDR [id number] 12 00:00:00 00:00:00 Only UnassignedTICO [id number] [place] [facility] [id number] [id number] [id number] 2019-05-27 2019-05-27 Orders Doctor ALEKSANDR [id number] 16 00:00:00 00:00:00 Only UnassignedTICO 350.1.13.10 [place] [facility] [id number] [id number] Results Test Description Test Time Test Comments Results Result [facility] e Comments PLACENTA THIRD 2019-09-25 TRIMESTER 18:45:00 --------RUN DATE: 09/26/19 [facility] PAGE 1 RUN TIME: 1248 Specimen Inquiry RUN USER: INTERFACE --------PATIENT: [facility]SHISH [facility]ULLIAM [facility] #: [id number] AGE/SX: ROOM: [facility] RE09/20/19REG DR: Justa Garcia MD : [birth year] BED: A DIS: 09/24/19 STATUS: DIS IN TLOC: -------- SPEC #: [id number] RECD: 09/21/19 STATUS: SOUAdy REQ #: [id number] MAGALI: 09/21/19- SUBM DR: Justa Garcia MD ENTERED: 09/23/19 SP TYPE: PLACIII OTHR DR: Crystal Crocker MD ORDERED: LEVEL V SURGICA CODES: [id number] - PLACENTA, NOS COPIES TO: Justa Garcia MD [address] [place] [address] Crystal Crocker MD [address] [place] [address] PROCEDURES: LEVEL V SURGICA (Incomplete) TISSUES: PLACENTA, NOS - PLACENTA CLINICAL HISTORY 24 year old, IUP @ 38 weeks, [id number], section, LGA, macrosomia (kr) FINAL DIAGNOSIS Placenta, 38 weeks gestational age, section: - third trimester placenta, 730 gm (greater than 97th percentile) - meconium macrophages within membranes - small intervillous thrombi - paramarginally inserted trivascular umbilical cord and membranes free of inflammation CPT code(s): 07358 [place] [employer] [facility]/kr dt: 09/25/19 GROSS DESCRIPTION The specimen was received in a container, labeled with the patient's name, unit number and designated "placenta". The following attributes are observed: Cord insertion: 2 cm from margin Cord length: 42 cm Number of vessels: 3 CONTINUED ON NEXT PAGE --------RUN DATE: 09/26/19 [facility] PAGE 2 RUN TIME: 1248 Specimen Inquiry RUN USER: INTERFACE --------SPEC #: [id number] PATIENT: ASHISH PULLIAM #[id number] (Continued) GROSS DESCRIPTION (Continued) Cord color: Li Other [...] Cassettes: A1 through A4 jm/wpd 09/23/19 @ 1335 Signed Samira Lugo MD 09/25/19 1845 -------- END OF REPORT CBC W/AUTO DIFF 2019-09-22 07:54:00 Test Item Value Reference Range Interpretation Comme nts WHITE BLOOD CELL (test code = WBC) 12.4 K/mm3 6.6-12.1 H RED BLOOD CELL (test code = RBC) 3.36 M/mm3 3.45-5.01 L HEMOGLOBIN (test code = HGB) 7.7 g/dL 10.7-13.9 L HEMATOCRIT (test code = HCT) 26.4 % 32.1-42.1 L MEAN CELL VOLUME (test code = MCV) 79 fL 84.1-94.8 L MEAN CELL HGB (test code = MCH) 22.9 pg 27-35 L MEAN CELL HGB CONCETRATION (test code = MCHC) 29.2 gm/dL 32.2-34. 1 L RED CELL DISTRIBUTION WIDTH (test code = RDW) 14.9 % 12.4-16. 5 N PLATELET COUNT (test code = PLT) 192 K/mm3 133-385 N IMMATURE PLATELET FRACTION (test code = IPF) 0.0 % 0.0-10.8 N MEAN PLATELET VOLUME (test code = MPV) 12.4 fl 9.1-12.7 N NEUTROPHIL % (test code = NT%) 73.3 % 56.5-79.4 N LYMPHOCYTE % (test code = LY%) 15.6 % 14.3-34.3 N MONOCYTE % (test code = MO%) 8.4 % 5.1-10.4 N EOSINOPHIL % (test code = EO%) 0.8 % 0.1-3.0 N BASOPHIL % (test code = BA%) 0.2 % 0.1-1.0 N NEUTROPHIL # (test code = NT#) 9.1 K/mm3 LYMPHOCYTE # (test code = LY#) 1.9 K/mm3 MONOCYTE # (test code = MO#) 1.0 K/mm3 EOSINOPHIL # (test code = EO#) 0.10 K/mm3 BASOPHIL # (test code = BA#) 0.0 K/mm3 RBC MORPHOLOGY REQUIRED (test code = RBCM) NORMAL NORMAL PLATELET MORPHOLOGY REQUIRED (test code = PLTMR) NORMAL DEBBIE L AG HEPATITIS B [id number] 03:30:00 Test Item Value Reference Range Interpretation Comments AG HEPATITIS B SURFACE (test code NONREACTIVE NONREACTIVE = HBSAG) IS CONSENT FORM SIGNED FOR HIV TESTING? YAB HEPATITIS C [id number] 03:30:00 Test Item Value Reference Range Interpretation Comments AB HEPATITIS C (test code = NONREACTIVE NONREACTIVE HCVAB) SIGNAL TO CUTOFF (test code = <0.02 <0.80 N CUTOFF) IS CONSENT FORM SIGNED FOR HIV TESTING? YAB [id number] 03:30:00 Test Item Value Reference Range Interpretation Comments AB TREPONEMA (test code = TREPAB) NONREACTIVE NONREACTIVE IS CONSENT FORM SIGNED FOR HIV TESTING? YAB HIV 1 03:30:00 Test Item Value Reference Range Interpretation Comments AB HIV 1 2 (test NONREACTIVE NONREACTIVE Done by [facility] code = [id number]) 4th Gen HIV Ag/Ab Combo Screen IS CONSENT FORM SIGNED FOR HIV TESTING? YAG HEPATITIS B [id number] 02:59:00 Test Item Value Reference Range Interpretation Comments AG HEPATITIS B SURFACE (test code NONREACTIVE NONREACTIVE = HBSAG) IS CONSENT FORM SIGNED FOR HIV TESTING? BJ HEPATITIS C [id number] 02:59:00 Test Item Value Reference Range Interpretation Comments AB HEPATITIS C (test code = HCVAB) NONREACTIVE SIGNAL TO CUTOFF (test code = CUTOFF) <0.80 IS CONSENT FORM SIGNED FOR HIV TESTING? CHECOB [id number] 02:59:00 Test Item Value Reference Range Interpretation Comments AB TREPONEMA (test code = TREPAB) NONREACTIVE NONREACTIVE IS CONSENT FORM SIGNED FOR HIV TESTING? YAB HIV 1 02:59:00 Test Item Value Reference Range Interpretation Comments AB HIV 1 2 (test code = [id number]) NONREACTIVE IS CONSENT FORM SIGNED FOR HIV TESTING? YCOMPREHENSIVE METABOLIC [id number] 01:01:00 Test Item Value Reference Range Interpretation Comments SODIUM (test code = NA) 135 mEq/L 135-145 N POTASSIUM (test code = K) 3.8 mEq/L 3.5-5.0 N CHLORIDE (test code = CL) 101 mEq/L 100-115 N CARBON DIOXIDE (test code = CO2) 22 mEq/L 22-31 N ANION GAP (test code = GAP) 16.20 10-20 N GLUCOSE (test code = GLU) 83 mg/dL 65-110 N BLOOD UREA NITROGEN (test code = 4 mg/dL 7-18 L BUN) GLOMERULAR FILTRATION RATE (test 149 ml/min >60 N code = GFR) CREATININE (test code = CREAT) 0.5 mg/dL 0.5-1.0 N TOTAL PROTEIN (test code = PROT) 6.4 gm/dL 6.3-8.2 N ALBUMIN (test code = ALB) 2.8 gm/dL 3.4-4.8 L CALCIUM (test code = CA) 8.8 mg/dL 8.4-10.2 N BILIRUBIN TOTAL (test code = 0.4 mg/dL 0.2-1.0 N BILT) SGOT/AST (test code = AST) 26 units/L 15-37 N SGPT/ALT (test code = ALT) 22 units/L 12-78 N ALKALINE PHOSPHATASE TOTAL (test 128 units/L 46-116 H code = ALKP) CBC W/AUTO [id number] 00:53:00 Test Item Value Reference Range Interpretation Comments WHITE BLOOD CELL (test code = WBC) 12.3 K/mm3 6.6-12.1 H RED BLOOD CELL (test code = RBC) 3.83 M/mm3 3.45-5.01 N HEMOGLOBIN (test code = HGB) 8.9 g/dL 10.7-13.9 L HEMATOCRIT (test code = HCT) 29.8 % 32.1-42.1 L MEAN CELL VOLUME (test code = MCV) 78 fL 84.1-94.8 L MEAN CELL HGB (test code = MCH) 23.2 pg 27-35 L MEAN CELL HGB CONCETRATION (test 29.9 gm/dL 32.2-34.1 L code = MCHC) RED CELL DISTRIBUTION WIDTH (test 14.8 % 12.4-16.5 N code = RDW) PLATELET COUNT (test code = PLT) 230 K/mm3 133-385 N IMMATURE PLATELET FRACTION (test 0.0 % 0.0-10.8 N code = IPF) MEAN PLATELET VOLUME (test code = 12.4 fl 9.1-12.7 N MPV) NEUTROPHIL % (test code = NT%) 73.8 % 56.5-79.4 N LYMPHOCYTE % (test code = LY%) 14.5 % 14.3-34.3 N MONOCYTE % (test code = MO%) 7.5 % 5.1-10.4 N EOSINOPHIL % (test code = EO%) 1.0 % 0.1-3.0 N BASOPHIL % (test code = BA%) 0.4 % 0.1-1.0 N NEUTROPHIL # (test code = NT#) 9.1 K/mm3 LYMPHOCYTE # (test code = LY#) 1.8 K/mm3 MONOCYTE # (test code = MO#) 0.9 K/mm3 EOSINOPHIL # (test code = EO#) 0.12 K/mm3 BASOPHIL # (test code = BA#) 0.1 K/mm3 RBC MORPHOLOGY REQUIRED (test code NORMAL NORMAL = RBCM) PLATELET MORPHOLOGY REQUIRED (test NORMAL NORMAL code = PLTMR)
--- NOTE | 2020-05-31 22:54 | RAD REPORT ---
EXAM DESCRIPTION: RAD - Hand Left 3 View - 05/31/2020 10:20 pm CLINICAL HISTORY: fall Fall, trauma, pain COMPARISON: No comparisons FINDINGS: Fracture involves the midshaft of the fourth metacarpal with small butterfly fragment. Mod erate soft tissue swelling is seen about the dorsum of the hand. No additional fracture or dislocatio n evident.
--- NOTE | 2020-05-31 22:55 | RAD REPORT ---
EXAM DESCRIPTION: RAD - Hand Right 3 View - 05/31/2020 10:20 pm CLINICAL HISTORY: fall Fall, trauma, pain COMPARISON: No comparisons FINDINGS: No acute fracture or dislocation is seen. Old boxer's fracture is noted.
== END 2020-05-31 21:33 | disposition home or self-care (01) ==
LOC: ER 19:02
PROC: 2W3DX1Z Immobilization of Left Lower Arm using Splint (ICD-10-PCS; principal; 2020-05-31)
DX: S62.305A Unspecified fracture of fourth metacarpal bone, left hand, initial encounter for closed fracture (principal); W19.XXXA Unspecified fall, initial encounter; Y93.89 Activity, other specified; Y92.89 Other specified places as the place of occurrence of the external cause
CPT/HCPCS: 99284

== ENCOUNTER 2020-06-09 10:57 | Day surgery (SDC) | payer SELFPAY ==
--- OUTSIDE RECORDS SUMMARY | 2020-06-09 11:17 | XMS REPORT | Continuity of Care Document ---
:1995 Author Organization [facility] t Address [address] [place] [address] Care Team Providers Name Role Phone Doctor [...] [facility] [place] Medications This patient has no known medications. Procedures This patient has no known procedures. Encounters Start End Encounter Admission Attending Care Care Encounter Source Date/Time Date/Time Type Type Clinicians Facility Department ID 2019-06-18 2019-06-18 Orders Doctor ALEKSANDR [id number] 00:00:00 00:00:00 Only UnassignedTICO 350.1.13.10 [place] [facility] 4.2.7.2.686 [id number] [id number] 2019-05-27 2019-05-27 Orders Doctor ALEKSANDR [id number] 16 00:00:00 00:00:00 Only UnassignedTICO 350.1.13.10 [place] [facility] 4.2.7.2.686 [id number] [id number] Results Test Description Test Time Test Comments Results Result [facility] e Comments PLACENTA THIRD 2019-09-25 TRIMESTER 18:45:00 --------RUN DATE: 09/26/19 [facility] PAGE 1 RUN TIME: 1248 Specimen Inquiry RUN USER: INTERFACE --------PATIENT: ASHISH PULLIAM [facility] U #: [id number] AGE/SX: ROOM: [facility] RE09/20/19REG DR: Justa Garcia MD : [birth year] BED: A DIS: 09/24/19 STATUS: DIS IN TLOC: -------- SPEC #: [id number] RECD: 09/21/19 STATUS: SOUAdy REQ #: [id number] MAGALI: 09/21/19- SUBM DR: Justa Garcia MD ENTERED: 09/23/19 SP TYPE: PLACIII OTHR DR: Crystal Crocker MD ORDERED: LEVEL V SURGICA CODES: [id number] - PLACENTA, NOS COPIES TO: Justa Garcia MD [address] [place] [address] Crystal Crocker MD [address] [place] [address] PROCEDURES: LEVEL V SURGICA (Incomplete) TISSUES: PLACENTA, NOS - PLACENTA CLINICAL HISTORY 24 year old, IUP @ 38 weeks, [id number], section, LGA, macrosomia (kr) FINAL DIAGNOSIS Placenta, 38 weeks gestational age, section: - third trimester placenta, 730 gm (greater than 97th percentile) - meconium macrophages within membranes - small intervillous thrombi - paramarginally inserted trivascular umbilical cord and membranes free of inflammation CPT code(s): 57484 [facility]/kr dt: 09/25/19 GROSS DESCRIPTION The specimen was received in a container, labeled with the patient's name, unit number and designated "placenta". The following attributes are observed: Cord insertion: 2 cm from margin Cord length: 42 cm Number of vessels: 3 CONTINUED ON NEXT PAGE --------RUN DATE: 09/26/19 [facility] PAGE 2 RUN TIME: 1248 Specimen Inquiry RUN USER: INTERFACE --------SPEC #: [id number] PATIENT: ASHISH PULLIAM #[id number] (Continued) GROSS DESCRIPTION (Continued) Cord color: Li [...] PLTMR) NORMAL DEBBIE L AG HEPATITIS B [id number] 03:30:00 Test Item Value Reference Range Interpretation Comments AG HEPATITIS B SURFACE (test code NONREACTIVE NONREACTIVE = HBSAG) IS CONSENT FORM SIGNED FOR HIV TESTING? YAB HEPATITIS C [id number] 03:30:00 Test Item Value Reference Range Interpretation Comments AB HEPATITIS C (test code = NONREACTIVE NONREACTIVE HCVAB) SIGNAL TO CUTOFF (test code = <0.02 <0.80 N CUTOFF) IS CONSENT FORM SIGNED FOR HIV TESTING? YAB [id number] 03:30:00 Test Item Value Reference Range Interpretation Comments AB TREPONEMA (test code = TREPAB) NONREACTIVE NONREACTIVE IS CONSENT FORM SIGNED FOR HIV TESTING? YAB HIV 1 03:30:00 Test Item Value Reference Range Interpretation Comments AB HIV 1 2 (test NONREACTIVE NONREACTIVE Done by [facility] code = [id number]) 4th Gen HIV Ag/Ab Combo Screen IS CONSENT FORM SIGNED FOR HIV TESTING? YAG HEPATITIS B [id number] 02:59:00 Test Item Value Reference Range Interpretation Comments AG HEPATITIS B SURFACE (test code NONREACTIVE NONREACTIVE = HBSAG) IS CONSENT FORM SIGNED FOR HIV TESTING? BJ HEPATITIS C [id number] 02:59:00 Test Item Value Reference Range Interpretation Comments AB HEPATITIS C (test code = HCVAB) NONREACTIVE SIGNAL TO CUTOFF (test code = CUTOFF) <0.80 IS CONSENT FORM SIGNED FOR HIV TESTING? CHECOB [id number] 02:59:00 Test Item Value Reference Range Interpretation Comments AB TREPONEMA (test code = TREPAB) NONREACTIVE NONREACTIVE IS CONSENT FORM SIGNED FOR HIV TESTING? YAB HIV 1 02:59:00 Test Item Value Reference Range Interpretation Comments AB HIV 1 2 (test code = DRY13AZ) NONREACTIVE IS CONSENT FORM SIGNED FOR HIV TESTING? YCOMPREHENSIVE METABOLIC [id number] 01:01:00 Test Item Value Reference Range Interpretation [...] 46-116 H code = ALKP) CBC W/AUTO [id number] 00:53:00 Test Item Value Reference Range Interpretation [...]
[2020-06-09 11:31] LABS: Specific Gravity 1.015 (1.005-1.030)
[2020-06-09] MEDS ORDERED: CEFAZOLIN/SWI 1gm 1 GM/10 ML SYR ONE (11:31)
[2020-06-09] MEDS ORDERED: Ringers Lactate 1,000 ML IV ONE (11:31)
[2020-06-09] MEDS ORDERED: propofoL 200 MG/20 ML VIAL IV ONE (11:46)
[2020-06-09] MEDS ORDERED: FENTANYL CITR 100 MCG/2 ML ONE (11:46)
[2020-06-09] MEDS ORDERED: LIDOCAINE 1% MPF 5 ML VIAL ONE (11:46)
[2020-06-09] MEDS ORDERED: MIDAZOLAM HCL 2 MG/2 ML INJ ONE (11:46)
[2020-06-09] MEDS ORDERED: dexAMETHasone 10 MG/ML VIAL ONE (12:44)
[2020-06-09] MEDS ORDERED: KETOROLAC 30 MG/ML INJ ONE (12:44)
[2020-06-09] MEDS ORDERED: ONDANSETRON 4 MG/2 ML VIAL ONE (13:06)
[2020-06-09] MEDS ORDERED: MORPHINE 10 MG/ML VIAL ONE (13:07)
[2020-06-09] MEDS ORDERED: Mastisol Adhesive Liq ONE (13:25)
--- NOTE | 2020-06-09 13:28 | RAD REPORT ---
EXAM DESCRIPTION: RAD - Hand Left 2 View - 06/09/2020 1:20 pm CLINICAL HISTORY: PINNING LEFT 4TH METACARPAL COMPARISON: Hand Left 3 View dated 05/31/2020 FINDINGS: There were 5 portable C-arm views submitted from a fluoroscopic assisted placement of frac ture fixation hardware. No suspicious or unexpected finding. Fluoro time was 0.1 minutes with a cumulative dose of 0.103 mGy
[2020-06-09] MEDS: HYDROMORPHONE HCL 2 MG/ML inj ONE ×4 (13:33→14:09)
[2020-06-09] MEDS: MEPERIDINE HCL 50 MG/ML ONE ×3 (13:42→14:04)
[2020-06-09] MEDS ORDERED: PROMETHAZINE INJ 25 MG/ML AMP ONE (13:51)
[2020-06-09 14:44] VITALS: TEMP 96.7; O2SAT 100
[2020-06-09] MEDS ORDERED: HYDROCODONE/APAP 7.5/325 MG TAB PO ONE (15:00)
[2020-06-09 15:03] VITALS: BP 116/74
[2020-06-09] MEDS ORDERED: HYDROCODONE/APAP 7.5/325 MG TAB ONE (15:03)
--- NOTE | 2020-06-09 23:54 | OP ---
Surgeon: Enrique Pizarro MD Preoperative Diagnosis: Fractured fourth metacarpal, comminuted, displaced. Postoperative Diagnosis: Fractured fourth metacarpal, comminuted, displaced. Procedure Performed: Open reduction and internal fixation, splint. Anesthesia: General. Description Of Procedure: After satisfactory induction of general anesthesia, the hand was prepped with Betadine scrub, Betadine paint, dry sterile drapes applied in usual manner. Traction was placed on the fracture and the C-arm brought in. Fracture could not be reduced, was over 10-day-old and comminuted. Therefore, ORIF was done. This was done by first elevating arm, exsanguinated with an Esmarch, tourniquet inflated to 250 mmHg. Hand placed on a [place] table. A curved linear incision was made over the fourth metacarpal. Dissection was carried down radially and ulnarly. Dissection was proceeded down to periosteum, opened with scalpel. Butterfly fragment was identified on the ulnar side. The fracture was such that it required 2 plates, 1 plate went slightly radial and dorsal holding the distal proximal fragment. The other plate went from the ulnar from proximal to the butterfly fragment. The distal attachment to the other fragment could not be done screws were placed of 1.5 mm and the plate had 6 holes dorsally and 5 holes ulnarly. C-arm revealed good reduction and plate and screw length. The tourniquet was released. Electrocautery was used for hemostasis. 4-0 Vicryl was used to close periosteum and 4-0 Vicryl for subcu. Then, the skin closed with upside down running locking 4-0 PDS followed by tincture of benzoin, Steri-Strips, and fiberglass splint holding the wrist 10 degrees of dorsiflexion, MCP 90, PIP and DIP 0. The patient tolerated procedure well and returned to recovery. SLIM/ARTEMIO Voice ID: [id number] Report ID: [id number] MELVI
== END 2020-06-09 15:45 | disposition home or self-care (01) ==
LOC: OR 10:57
PROVIDERS: ATTEND Specialist
PROC: 0PSQ04Z Reposition Left Metacarpal with Internal Fixation Device, Open Approach (ICD-10-PCS; principal; 2020-06-09 12:00)
DX: S62.305A Unspecified fracture of fourth metacarpal bone, left hand, initial encounter for closed fracture (principal); Z20.828 Contact with and (suspected) exposure to other viral communicable diseases; F17.290 Nicotine dependence, other tobacco product, uncomplicated
CPT/HCPCS: 81025; J0690; J1100; J1170; J2175; J2250; J2405; J2550; J2704; J3010; J7120; U0002

== ENCOUNTER 2020-11-24 15:06 | Emergency (ER) | payer SELFPAY ==
--- OUTSIDE RECORDS SUMMARY | 2020-11-24 15:22 | XMS REPORT | Continuity of Care Document ---
:1995 Author Organization [facility] t Address [address] [place] [address] Care Team Providers Name Role Phone Doctor [...] Allergie -16 [facility] [place] Medications This patient has no known medications. Procedures This patient has no known procedures. Encounters Start End Encounter Admission Attending Care Care Encounter Source Date/Time Date/Time Type Type Clinicians Facility Department ID 2019-06-18 2019-06-18 Orders Doctor ALEKSANDR [id number] 00:00:00 00:00:00 Only UnassignedTICO [id number] [place] [facility] [id number] 2019-05-27 2019-05-27 Orders Doctor ALEKSANDR [id number] 00:00:00 00:00:00 Only UnassignedTICO [id number] [place] [facility] [id number] Results Test Description Test Time Test Comments Results Result [facility] e Comments PLACENTA THIRD 2019-09-25 TRIMESTER 18:45:00 --------RUN DATE: 09/26/19 [facility] PAGE 1 RUN TIME: 1248 Specimen Inquiry RUN USER: INTERFACE --------PATIENT: ASHISH PULLIAM LOC: JackelinSHERIN U #: [id number] AGE/SX: / ROOM: [facility] RE09/20/19REG DR: Justa Garcia MD : 89 BED: A DIS: 09/24/19 STATUS: DIS IN TLOC: -------- SPEC #: [id number] RECD: 09/21/19 STATUS: SOUAdy REQ #: [id number] MAGALI: 09/21/19- SUBM DR: Justa Garcia MD ENTERED: 09/23/19 SP TYPE: PLACIII OTHR DR: Crystal Crocker MD ORDERED: LEVEL V SURGICA CODES: [id number] - PLACENTA, NOS COPIES TO: Justa Garcia MD [address] [facility] [id number] [place] [address] Crystal Crocker MD [address] [place] [address] PROCEDURES: LEVEL V SURGICA (Incomplete) TISSUES: PLACENTA, NOS - PLACENTA CLINICAL HISTORY 24 year old, IUP @ 38 weeks, [id number], section, LGA, macrosomia (kr) FINAL DIAGNOSIS Placenta, 38 weeks gestational age, section: - third trimester placenta, 730 gm (greater than 97th percentile) - meconium macrophages within membranes - small intervillous thrombi - paramarginally inserted trivascular umbilical cord and membranes free of inflammation CPT code(s): 44[address] [facility]/[place] dt: 09/25/19 GROSS DESCRIPTION The specimen was received in a container, labeled with the patient's name, unit number and designated "placenta". The following attributes are observed: Cord insertion: 2 cm from margin Cord length: 42 cm Number of vessels: 3 CONTINUED ON NEXT PAGE --------RUN DATE: 09/26/19 [facility] PAGE 2 RUN TIME: 1248 Specimen Inquiry RUN USER: INTERFACE --------SPEC #: [id number] PATIENT: ASHISH PULLIAM #[id number] (Continued) GROSS DESCRIPTION (Continued) Cord color: Li [...] the placental parenchyma Cassettes: A1 through A4 andres/wpd 09/23/19 @ 1335 Signed Samira Lugo MD [...] PLTMR) NORMAL DEBBIE L AG HEPATITIS B [id number] 03:30:00 Test Item Value Reference Range Interpretation Comments AG HEPATITIS B SURFACE (test code NONREACTIVE NONREACTIVE = HBSAG) IS CONSENT FORM SIGNED FOR HIV TESTING? YAB HEPATITIS C [id number] 03:30:00 Test Item Value Reference Range Interpretation Comments AB HEPATITIS C (test code = NONREACTIVE NONREACTIVE HCVAB) SIGNAL TO CUTOFF (test code = <0.02 <0.80 N CUTOFF) IS CONSENT FORM SIGNED FOR HIV TESTING? YAB [id number] 03:30:00 Test Item Value Reference Range Interpretation Comments AB TREPONEMA (test code = TREPAB) NONREACTIVE NONREACTIVE IS CONSENT FORM SIGNED FOR HIV TESTING? YAB HIV 1 03:30:00 Test Item Value Reference Range Interpretation Comments AB HIV 1 2 (test NONREACTIVE NONREACTIVE Done by [facility] code = [id number]) 4th Gen HIV Ag/Ab Combo Screen IS CONSENT FORM SIGNED FOR HIV TESTING? YAG HEPATITIS B [id number] 02:59:00 Test Item Value Reference Range Interpretation Comments AG HEPATITIS B SURFACE (test code NONREACTIVE NONREACTIVE = HBSAG) IS CONSENT FORM SIGNED FOR HIV TESTING? BJ HEPATITIS C [id number] 02:59:00 Test Item Value Reference Range Interpretation Comments AB HEPATITIS C (test code = HCVAB) NONREACTIVE SIGNAL TO CUTOFF (test code = CUTOFF) <0.80 IS CONSENT FORM SIGNED FOR HIV TESTING? CHECOB [id number] 02:59:00 Test Item Value Reference Range Interpretation Comments AB TREPONEMA (test code = TREPAB) NONREACTIVE NONREACTIVE IS CONSENT FORM SIGNED FOR HIV TESTING? CHECOB HIV 1 02:59:00 Test Item Value Reference Range Interpretation Comments AB HIV 1 2 (test code = SPH23GX) NONREACTIVE IS CONSENT FORM SIGNED FOR HIV TESTING? YCOMPREHENSIVE METABOLIC [id number] 01:01:00 Test Item Value Reference Range Interpretation [...] 46-116 H code = ALKP) CBC W/AUTO [id number] 00:53:00 Test Item Value Reference Range Interpretation [...]
--- NOTE | 2020-11-24 18:22 | RAD REPORT ---
EXAM DESCRIPTION: RAD - Ankle Right 3 View - 11/24/2020 6:14 pm CLINICAL HISTORY: PAIN COMPARISON: Ankle Right 3 View dated 05/20/2016 FINDINGS: Mild soft tissue swelling is seen adjacent to the lateral malleolus. Old traumatic changes are evident in the region of the distal fibula. It is difficult to exclude a small acute avulsion in jury in this region. Followup MR imaging on a nonemergent basis would be helpful.
--- NOTE | 2020-11-24 18:32 | ER ---
Nurse's Notes [facility] Name: Sherman Hall Age: 25 yrs Sex: Female : 1995 Arrival Date: 11/24/2020 Time: 15:09 Bed 6 Private MD: Diagnosis: Sprain of ankle-right Presentation: 11/24 15:24 Chief complaint: Patient states: Stepped to put daughter away. Sudden pop and pain to R ll1 ankle, then ankle rolled. Right ankle pain and swelling since 1130 today. Coronavirus screen: Client denies travel out of the [place] in the last 14 days. At this time, the client does not indicate any symptoms associated with coronavirus-19. Ebola Screen: Patient denies travel to an Ebola-affected area in the 21 days before illness onset. Initial Sepsis Screen: Does the patient meet any 2 criteria? No. Patient's initial sepsis screen is negative. Does the patient have a suspected source of infection? Yes: Bone or joint infection. Risk Assessment: Do you want to hurt yourself or someone else? Patient reports no desire to harm self or others. Onset of symptoms was November 24, 2020. 15:24 Method Of Arrival: Wheelchair ll1 15:24 Acuity: LINNEA 4 ll1 Triage Assessment: 17:04 General: Appears uncomfortable, Behavior is calm, cooperative, appropriate for age. ll1 Pain: Complains of pain in R ankle Quality of pain is described as aching, throbbing, Pain began 1 day ago. Musculoskeletal: Circulation, motion, and sensation intact. Capillary refill < 3 seconds, Swelling present in R lateral ankle Tenderness present in R lateral ankle Reports pain in R ankle. Historical: - Allergies: 15:26 No Known Allergies; ll1 - PMHx: 15:26 None; ll1 - PSHx: 15:26 ; L hand sx; Tonsillectomy; ll1 - Immunization history:: Flu vaccine is not up to date. - Social history:: Smoking status: Patient denies any tobacco usage or history of. Screenin:15 Abuse screen: Denies threats or abuse. Denies injuries from another. Nutritional sv screening: No deficits noted. Tuberculosis screening: No symptoms or risk factors identified. Fall Risk None identified. Assessment: 18:18 General: Appears in no apparent distress. uncomfortable, well developed, Behavior is sv calm, cooperative, appropriate for age. Pain: Complains of pain in right lateral malleolus Pain currently is 9 out of 10 on a pain scale. Quality of pain is described as aching, Pain began Is intermittent. Neuro: Level of Consciousness is awake, alert, obeys commands, Oriented to person, place, time, situation, Moves all extremities. Full function. Respiratory: Respiratory effort is even, unlabored, Respiratory pattern is regular, symmetrical. Derm: Skin is intact, Skin is pink, warm \T\ dry. Musculoskeletal: Range of motion: intact in all extremities, Swelling present in right lateral malleolus. 18:40 Reassessment: Pt did not want the crutches that were ordered. sv 18:50 Reassessment: Patient appears in no apparent distress at this time. No changes from sv previously documented assessment. Patient and/or family updated on plan of care and expected duration. Pain level reassessed. Patient is alert, oriented x 3, equal unlabored respirations, skin warm/dry/pink. Vital Signs: 15:24 BP 125 / 99; Pulse 80; Resp 17; Temp 98.4; Pulse Ox 100% ; Weight 85.28 kg; Height 5 ll1 ft. 7 in. (170.18 cm); Pain 9/10; 15:24 Body Mass Index 29.44 (85.28 kg, 170.18 cm) ll1 ED Course: 15:09 Patient arrived in ED. ds1 15:19 Tony Mercado PA is PHCP. [facility] 15:19 Roberto Larson MD is Attending Physician. [facility] 15:25 Triage completed. ll1 15:26 Arm band placed on. ll1 18:09 Ranjit Sandoval PA is PHCP. cp 18:09 Roberto Larson MD is Attending Physician. cp 18:14 Rena Rawls, CODEY is Primary Nurse. sv 18:15 XRAY Ankle RIGHT 3 view In Process Unspecified. EDMS 18:15 Patient has correct armband on for positive identification. Bed in low position. Call sv light in reach. Door closed. Head of bed elevated. 18:30 Donald Justice MD is Referral Physician. cp 18:43 walking boot applied to right foot. dh3 18:50 No provider procedures requiring assistance completed. Patient did not have IV access sv during this emergency room visit. Administered Medications: 18:23 Drug: Tylenol 650 mg Route: PO; sv 18:38 Follow up: Response: No adverse reaction sv 18:23 Drug: Ibuprofen 800 mg Route: PO; sv 18:37 Follow up: Response: No adverse reaction sv Outcome: 18:31 Discharge ordered by MD. cp 18:50 Discharged to home ambulatory, with walking boot sv 18:50 Condition: stable 18:50 Discharge instructions given to patient, Instructed on discharge instructions, follow up and referral plans. medication usage, Demonstrated understanding of instructions, follow-up care, medications, Prescriptions given X 1. 18:53 Patient left the ED. sv Signatures: Dispatcher [employer] EDRena Gasca RN RN Tony Paz PA PA jmm Sanford, Demi ds1 Ranjit Sandoval PA PA cp Herrera, Deanna 3 Candi Aguirre RN RN ll1
--- NOTE | 2020-11-24 18:32 | EDPHYS ---
Physician Documentation [facility] Name: Sherman Hall Age: 25 yrs Sex: Female : 1995 Arrival Date: 11/24/2020 Time: 15:09 Bed 6 Private MD: ED Physician Roberto Larson HPI: 11/24 18:15 This 25 yrs old Female presents to ER via Wheelchair with complaints of Ankle cp Injury. 18:15 The patient presents with an injury, pain, that is acute. The complaints affect the cp right ankle. Onset: The symptoms/episode began/occurred today. Context: resulted from a mis-step by the patient, The mechanism of injury involved inversion of the affected ankle. The patient can partially bear weight on the affected extremity. the patient is able to ambulate, with moderate difficulty. Associated signs and symptoms: Pertinent positives: swelling, Pertinent negatives: numbness, tingling. Historical: - Allergies: 15:26 No Known Allergies; ll1 - PMHx: 15:26 None; ll1 - PSHx: 15:26 ; L hand sx; Tonsillectomy; ll1 - Immunization history:: Flu vaccine is not up to date. - Social history:: Smoking status: Patient denies any tobacco usage or history of. ROS: 18:20 MS/extremity: Positive for pain, swelling, tenderness, of the right ankle, Negative for cp decreased range of motion, deformity, paresthesias. 18:20 Constitutional: Negative for fever. cp 18:20 Cardiovascular: Negative for chest pain. 18:20 Respiratory: Negative for cough, shortness of breath, wheezing. 18:20 Abdomen/GI: Negative for abdominal pain. 18:20 Skin: Negative for rash. 18:20 Neuro: Negative for numbness, weakness. 18:20 All other systems are negative. Exam: 18:25 Constitutional: The patient appears in no acute distress, alert, awake, well developed, cp well nourished. 18:25 Musculoskeletal/extremity: Extremities: grossly normal except: noted in the right cp lateral malleolus: pain, swelling, tenderness, There is no evidence of decreased ROM, deformity, ROM: limited passive range of motion due to pain, in the right ankle, Achilles tendon intact and no pain to palpation noted at proximal right fibula and/or base of right fifth metatarsal. Vital Signs: 15:24 BP 125 / 99; Pulse 80; Resp 17; Temp 98.4; Pulse Ox 100% ; Weight 85.28 kg; Height 5 ll1 ft. 7 in. (170.18 cm); Pain 9/10; 15:24 Body Mass Index 29.44 (85.28 kg, 170.18 cm) ll1 Procedures: 18:45 Splinting: Splint applied to right ankle using walking boot. applied by nurse. Patient cp tolerated well. MDM: 18:11 Patient medically screened. cp 18:30 Data reviewed: vital signs, nurses notes, radiologic studies, plain films. cp 18:30 Differential diagnosis: fracture, sprain, dislocation. Test interpretation: by ED cp physician or midlevel provider: plain radiologic studies. Counseling: I had a detailed discussion with the patient and/or guardian regarding: the historical points, exam findings, and any diagnostic results supporting the discharge/admit diagnosis, radiology results, to return to the emergency department if symptoms worsen or persist or if there are any questions or concerns that arise at home. Response to treatment: the patient's symptoms have markedly improved after treatment, and as a result, I will discharge patient. 11/24 17:51 Order name: XRAY Ankle RIGHT 3 view; Complete Time: 18:26 rn 11/24 18:27 Order name: Walking boot; Complete Time: 18:49 cp Administered Medications: 18:23 Drug: Tylenol 650 mg Route: PO; sv 18:38 Follow up: Response: No adverse reaction sv 18:23 Drug: Ibuprofen 800 mg Route: PO; sv 18:37 Follow up: Response: No adverse reaction sv Disposition: 19:00 Chart complete. cp Disposition: 11/24/20 18:31 Discharged to Home. Impression: Sprain of ankle - right. - Condition is Stable. - Discharge Instructions: Ankle Sprain. - Prescriptions for Ibuprofen 800 mg Oral Tablet - take 1 tablet by ORAL route every 8 hours As needed take with food; 30 tablet. - Medication Reconciliation Form, Thank You Letter, Antibiotic Education, Prescription Opioid Use form. - Follow up: Donald Justice MD; When: 1 week; Reason: Recheck today's complaints. - Problem is new. - Symptoms have improved. Addendum: 11/27/2020 10:05 Co-signature as Attending Physician, Roberto Larson MD. r n Signatures: Dispatcher [employer] Rena Herbert RN RN Roberto Larson MD MD rn Page, Corey, PA PA cp Candi Aguirre, RN RN ll1 Corrections: (The following items were deleted from the chart) 11/24 18:50 18:27 Crutches ordered. cp dh3 18:53 18:31 11/24/2020 18:31 Discharged to Home. Impression: Sprain of ankle - right. sv Condition is Stable. Forms are Medication Reconciliation Form, Thank You Letter, Antibiotic Education, Prescription Opioid Use. Follow up: Donald Justice; When: 1 week; Reason: Recheck today's complaints. Problem is new. Symptoms have improved. cp 11/25 17:16 11/24 17:35 Splinting: Splint applied to right ankle using walking boot. applied by cp nurse. Patient tolerated well, cp
[2020-11-24] MEDS ORDERED: ACETAMINOPHEN 325 MG TABLET ONE (18:35)
[2020-11-24] MEDS ORDERED: IBUPROFEN 400 MG TAB ONE (18:36)
[2020-11-24 18:58] VITALS: BP 125/99; TEMP 98.4; O2SAT 100
== END 2020-11-24 18:53 | disposition home or self-care (01) ==
LOC: ER 15:06
DX: S93.401A Sprain of unspecified ligament of right ankle, initial encounter (principal); X50.0XXA Overexertion from strenuous movement or load, initial encounter; Y93.89 Activity, other specified; Y92.9 Unspecified place or not applicable
CPT/HCPCS: 99284